=== PATIENT | male | born 1960 | race Native Hawaiian/Other Pacific Islander ===

== ENCOUNTER 2017-05-27 17:03 | Emergency (ER) | payer OTHER ==
[2017-05-27 17:03] VITALS: BMI 23.1
[2017-05-27 17:10] VITALS: TEMP 98.2; O2SAT 100
[2017-05-27] MEDS ORDERED: Sodium Chloride 0.9% 1,000 ML IV STA (17:23)
[2017-05-27] MEDS ORDERED: Morphine 4 mg/ml ISec IVP STA (17:23)
--- NOTE | 2017-05-27 17:29 | ED PDOC ---
Arrival/HPI - General Chief Complaint: Abdominal Pain Time Seen by Provider: 05/27/17 17:04 Historian: Patient - History of Present Illness Narrative History of Present Illness (Text): 05/27/17 17:16 This 57 yo male with pmh GERD, presents to this ED c/o right lower back pain, radiated to right abdomen x 3 hours. Patient admits a mild constipation. Patient also stated hesitation during urination x 2 months. Denies other complains. Time/Duration: Prior to Arrival, 1-3 hours Quality: Aching Context: Home Past Medical History - Provider Review Nursing Documentation Reviewed: Yes - Infectious Disease Hx of Infectious Diseases: None - Cardiac Hx Pacemaker: No - Neurological Hx Paralysis: No - Renal Other/Comment: left testical ca - Hematological/Oncological Hx Blood Transfusions: No Hx Blood Transfusion Reaction: No - Musculoskeletal/Rheumatological Hx Musculoskeletal Disorders: No - Gastrointestinal Hx Gastroesophageal Reflux: Yes - Psychiatric Hx Emotional Abuse: No Hx Physical Abuse: No Hx Substance Use: No - Past Surgical History Past Surgical History: No Previous - Surgical History Other/Comment: left testical removed - Anesthesia Hx Anesthesia Reactions: No Hx Malignant Hyperthermia: No - Suicidal Assessment Feels Threatened In Home Enviroment: No Family/Social History - Physician Review Nursing Documentation Reviewed: Yes Family/Social History: No Known Family HX, Unknown Family HX Smoking Status: Current Some Days Smoker Hx Alcohol Use: No Hx Substance Use: No Hx Substance Use Treatment: No Allergies/Home Meds Allergies/Adverse Reactions: Allergies Penicillins Allergy (Severe, Verified 07/31/16 08:33) ANAPHYLAXIS amoxicillin Allergy (Intermediate, Verified 07/31/16 08:33) ANAPHYLAXIS prednisone Allergy (Intermediate, Verified 07/31/16 08:33) STOMACH/GI DISTRESS Home Medications: Home Meds Medication Instructions Recorded Confirmed ALPRAZolam [Xanax] 0.25 mg PO PRN PRN 07/31/16 05/27/17 Ibuprofen [Advil] 200 mg PO PRN PRN 07/31/16 05/27/17 Review of Systems - Review of Systems Constitutional: Normal. absent: Fatigue, Weight Change, Fevers Eyes: Normal ENT: Normal Respiratory: Normal. absent: SOB Cardiovascular: Normal. absent: Chest Pain, Palpitations Gastrointestinal: Abdominal Pain, Constipation. absent: Nausea, Vomiting Genitourinary Male: Other (see HPI). absent: Dysuria, Hematuria Musculoskeletal: Back Pain. absent: Arthralgias, Neck Pain, Joint Swelling, Myalgias Skin: Normal. absent: Rash Neurological: Normal. absent: Headache, Dizziness, Focal Weakness, Gait Changes , Speech Changes, Facial Droop Endocrine: Normal Hemo/Lymphatic: Normal Psychiatric: Normal Physical Exam Vital Signs Temp Pulse Resp BP Pulse Ox 05/27/17 19:28 75 17 131/74 100 05/27/17 18:34 78 18 129/60 100 05/27/17 17:03 98.2 F 57 L 18 165/69 H 100 Temperature: Afebrile Blood Pressure: Hypertensive Pulse: Bradycardic Respiratory Rate: Normal Appearance: Positive for: Well-Appearing, Non-Toxic, Comfortable Pain Distress: None Mental Status: Positive for: Alert and Oriented X 3 - Systems Exam Head: Present: Atraumatic, Normocephalic Pupils: Present: PERRL Extroacular Muscles: Present: EOMI Conjunctiva: Present: Normal Mouth: Present: Moist Mucous Membranes Neck: Present: Normal Range of Motion Respiratory/Chest: Present: Clear to Auscultation, Good Air Exchange. No: Respiratory Distress, Accessory Muscle Use Cardiovascular: Present: Regular Rate and Rhythm, Normal S1, S2. No: Murmurs Abdomen: Present: Tenderness (mild right flank tenderness), Normal Bowel Sounds. No: Distention, Peritoneal Signs, Rebound, Guarding Back: Present: Normal Inspection. No: CVA Tenderness Upper Extremity: Present: Normal Inspection, Normal ROM, NORMAL PULSES, Neurovascularly Intact, Capillary Refill < 2s. No: Cyanosis, Edema Lower Extremity: Present: Normal Inspection, NORMAL PULSES, Normal ROM, Neurovascularly Intact, Capillary Refill < 2 s. No: Edema, CALF TENDERNESS Neurological: Present: GCS=15, CN II-XII Intact, Speech Normal, Motor Func Grossly Intact, Normal Sensory Function, Normal Cerebellar Funct, Gait Normal Skin: Present: Warm, Dry, Normal Color. No: Rashes Psychiatric: Present: Alert, Oriented x 3 Medical Decision Making ED Course and Treatment: 05/27/17 19:32 Re-evaluation. Patient feels better. Discussed results and plan with patient who expresses understanding. All questions answered and there is agreement with the plan to discharge home with instructions. Patient stable for discharge. Return if symptoms persist or worsen. Re-evaluation Time: 19:35 Reassessment Condition: Re-examined, Improved - Lab Interpretations Microbiology Results: Microbiology Results 05/27/17 17:38 Urine Urine Culture - Final No Growth (<1,000 CFU/ML) Lab Results: 05/27/17 17:05 05/27/17 17:05 Lab Results 05/27/17 17:38: Urine Color Yellow, Urine Appearance Clear, Urine pH 6.5, Ur Specific [place] 1.020, Urine Protein Trace H, Urine Glucose (UA) Negative, Urine Ketones Trace H, Urine Blood Large H, Urine Nitrate Negative, Urine Bilirubin Negative, Urine Urobilinogen 0.2, Ur Leukocyte Esterase Negative, Urine RBC Tntc, Urine WBC 20 - 25, Ur Epithelial Cells 6 - 8, Urine Bacteria Many 05/27/17 17:05: Sodium 139, Potassium 4.2, Chloride 106, Carbon Dioxide 22, Anion Gap 15, BUN 27 H, Creatinine 1.1, Est GFR ( Amer) > 60, Est GFR ( Non-Af Amer) > 60, Random Glucose 116 H, Calcium 9.5, Total Bilirubin 0.5, AST 20, ALT 28, Alkaline Phosphatase 80, Total Protein 7.0, Albumin 4.3, Globulin 2.7, Albumin/Globulin Ratio 1.6, Amylase 107, Lipase 271 05/27/17 17:05: WBC 11.7 H, RBC 5.54, Hgb 15.3, Hct 43.5, MCV 78.5 L, MCH 27.6, MCHC 35.2, RDW 15.0 H, Plt Count 159, MPV 11.4 H, Gran % 73.5 H, Lymph % (Auto) 17.2 L, [place] % (Auto) 8.4 H, Eos % (Auto) 0.6 L, Baso % (Auto) 0.3, Gran # 8.60 H, Lymph # 2.0, [place] # 1.0 H, Eos # 0.1, Baso # 0.03 I have reviewed the lab results: Yes Interpretation: Abnormal lab values - RAD Interpretation Narrative RAD Interpretations (Text): 05/27/17 19:01 Accession No. : [id number] Patient Name / ID : PANCHO MCNEIL / [id number] Exam Date : 05/27/2017 18:16:17 ( Approved ) Study Comment : Sex / Age : M / 57Y Creator : Jean Casanova MD Dictator : Jean Casanova MD Youth Minister : Donor Floor Technician : Jean Casanova MD Approver2 : Report Date : 05/27/2017 18:55:51 My Comment : PROCEDURE: CT scan of the abdomen and pelvis dated 01/29/2017. HISTORY: Right-sided flank pain COMPARISON: None. TECHNIQUE: Contiguous axial images of the abdomen and pelvis performed without oral or intravenous contrast material. Additional 2 dimensional sagittal and coronal reformats provided. Radiation dose: Total exam DLP = 266.32 mGy-cm. This CT exam was performed using one or more of the following dose reduction techniques: Automated exposure control, adjustment of the mA and/or kV according to patient size, and/or use of iterative reconstruction technique. FINDINGS: LOWER THORAX: Minimal passive atelectasis both posterior lower lung vasquez. No focal consolidation or effusion. No evidence of basilar pneumothorax. Tiny hiatal hernia. Heart size within range of normal. No pericardial effusion. LIVER: Liver is upper limits of normal measuring nearly 17.5 cm in CC dimension. No obvious hepatic the mass or collection. GALLBLADDER AND BILE DUCTS: Gallbladder appears to be contracted likely due to nonfasting state. No obvious intraluminal gallbladder calculi. Follow-up gallbladder ultrasound could be performed if clinically indicated. PANCREAS: Pancreas is not well delineated due to the lack of intravenous contrast material as well as passive a adjacent bowel. No gross pancreatic mass collection or calcification. Pancreatic duct does not appear significantly dilated so far as can be seen. SPLEEN: Spleen exhibits normal size and attenuation pattern without mass collection or calcification. ADRENALS: No adrenal lesions. KIDNEYS AND URETERS: Kidneys demonstrate relatively symmetric size. Small calcifications within renal hilar regions felt to be vascular in origin. Mildly prominent right-sided right-sided pelvis however no evidence of ureteral dilatation. BLADDER: Urinary bladder appears incompletely distended which may account for thick- walled appearance. Muscular hypertrophy may contribute. Cystitis or other intrinsic/invasive wall lesion would be less likely though not completely excluded . There is a small approximately 2.4 mm calcification within the right parasagittal posterior bladder lumen possibly related to recently passed calculus ; presumably on the right side REPRODUCTIVE: Prostate gland measures approximately 4.7 cm in transverse dimension. Prostatic calcifications are present. APPENDIX: Appendix is not seen with complete certainty however no radiographic evidence of acute appendicitis. BOWEL: Evaluation of the bowel is limited due to the lack of oral contrast material. Stomach is incompletely distended which may account for thick-walled appearance. Gastritis not excluded. Visualized loops of small bowel exhibit normal contour and caliber. No evidence of acute mechanical small bowel obstruction however there is fecalization of small bowel contents suggesting small bowel stasis. Clinical correlation recommended. Moderate amount of stool is present within the cecum and at ascending and to a lesser degree transverse colon consistent with mild fecal retention/constipation. PERITONEUM: Unremarkable. No fluid collection. No free air. LYMPH NODES: Unremarkable. No enlarged lymph nodes. VASCULATURE: No evidence of abdominal aortic aneurysm. Mild vascular calcifications of the abdominal aorta ileal disease iliac arteries. Minor calcifications also seen along the proximal renal arteries. BONES: Minor multilevel degenerative spondylosis of the lower thoracic and lumbar spine. OTHER FINDINGS: None. IMPRESSION: There is a small approximately 2.4 mm calculus within the right posterior parasagittal urinary bladder lumen that may represent recently passed calculus. Urinary bladder appears incompletely distended which may account for thick- walled appearance. Muscular hypertrophy may contribute. Cystitis or other intrinsic/invasive wall lesion would be less likely though not completely excluded . See above discussion for additional findings and details. Radiology Orders: 05/27/17 17:25 ABD & PELVIS W/O PO OR IV CONT [CT] Stat - Medication Orders Current Medication Orders: Discontinued Medications Famotidine (Pepcid) 20 mg IVP STAT STA Stop: 05/27/17 17:24 Last Admin: 05/27/17 17:40 Dose: 20 mg Sodium Chloride (Sodium Chloride 0.9%) 1,000 mls @ 1,000 mls/hr IV .Q1H STA Stop: 05/27/17 18:22 Last Admin: 05/27/17 17:41 Dose: 1,000 mls/hr Ketorolac Tromethamine (Toradol) 15 mg IVP STAT STA Stop: 05/27/17 17:41 Last Admin: 05/27/17 17:49 Dose: 15 mg Nitrofurantoin Macrocrystals (Macrobid) 100 mg PO STAT STA Stop: 05/27/17 19:17 Last Admin: 05/27/17 19:27 Dose: 100 mg Disposition/Present on Arrival - Present on Arrival Any Indicators Present on Arrival: No History of DVT/PE: No History of Uncontrolled Diabetes: No Urinary Catheter: No History of Decub. Ulcer: No History Surgical Site Infection Following: None - Disposition Have Diagnosis and Disposition been Completed?: Yes Diagnosis: Acute cystitis, Gastritis, Renal colic on right side Disposition: HOME/ ROUTINE Disposition Time: 19:36 Patient Plan: Discharge Condition: GOOD Discharge Instructions (ExitCare): Gastritis (ED), Kidney Stones (ED), Urinary Tract Infection in Men (ED) Additional Instructions: Call Dr. Дмитрий Garcia office for revaluation of bladder infection, and passing recent kidney stone. Also call packaging mechanic for revaluation of gastritis. Take medication as instructed. Return to emergency if symptoms worsen. Pyridium could cause urine color to be orange. Prescriptions: Famotidine [Pepcid] 40 mg PO DAILY #20 tablet Nitrofurantoin Macrocrystals [Macrobid] 100 mg PO BID #20 cap Phenazopyridine HCl [Pyridium] 200 mg PO TID #6 tablet Referrals: Ct Ramirez MD [Primary Care Provider] - Follow up with primary Дмитрий Garcia MD [Staff Provider] - Follow up with primary Bakari Wilde MD [Medical Doctor] - Follow up with primary Forms: WORK NOTE
[2017-05-27 17:53] LABS: ALB/GLOB RATIO 1.6 (1.1-1.8); ALBUMIN 4.3 g/dL (3.0-4.8); ALT/SGPT 28 U/L (7-56); AMYLASE 107 U/L (35-125); AST/SGOT 20 U/L (15-59); BLOOD UREA NITROGEN 27 mg/dL (7-21); CALCIUM 9.5 mg/dL (8.4-10.5); GFR AFRICAN-AMERICAN > 60; GFR NON-AFRICAN AMERICAN > 60; LIPASE 271 U/L (23-300)
[2017-05-27 18:02] LABS: PH,URINE 6.5 (4.7-8.0); URINE BILIRUBIN NEGATIVE (NEGATIVE); URINE BLOOD LARGE (NEGATIVE); URINE GLUCOSE (UA) NEGATIVE (NEGATIVE); URINE LEUKOCYTE ESTERASE NEGATIVE Leu/uL (NEGATIVE); URINE NITRATE NEGATIVE (NEGATIVE); URINE PROTEIN TRACE mg/dL (<30 mg/dL); URINE UROBILINOGEN 0.2 E.U./dL (<1 E.U./dL)
[2017-05-27 18:19] LABS: BASO # 0.03 K/mm3 (0.0-2.0); BASO % 0.3 % (0.0-3.0); EOS # 0.1 (0.0-0.7); EOS % 0.6 % (1.5-5.0); GRAN % 73.5 % (50.0-68.0); HEMOGLOBIN 15.3 gm/dL (14.0-18.0); LYMPH % 17.2 % (22.0-35.0); MEAN CELL VOLUME 78.5 fL (80.0-105.0); MEAN CORPUSCULAR HEMOGLOBIN 27.6 pg (25.0-35.0); MEAN CORPUSCULAR HGB CONC 35.2 g/dl (31.0-37.0); MEAN PLATELET VOLUME 11.4 fl (7.0-11.0); MONO % 8.4 % (1.0-6.0); PLATELET COUNT 159 10^3/uL (120.0-450.0); RBC 5.54 10^6/uL (3.5-6.1); WHITE BLOOD COUNT 11.7 10^3/ul (4.5-11.0)
[2017-05-27 18:20] LABS: URINE APPEARANCE CLEAR (CLEAR); URINE COLOR YELLOW (YELLOW)
--- NOTE | 2017-05-27 18:58 | CT ---
PROCEDURE: CT scan of the abdomen and pelvis dated 01/29/2017. HISTORY: Right-sided flank pain COMPARISON: None. TECHNIQUE: Contiguous axial images of the abdomen and pelvis performed without oral or intravenous contrast material. Additional 2 dimensional sagittal and coronal reformats provided. Radiation dose: Total exam DLP = 266.32 mGy-cm. This CT exam was performed using one or more of the following dose reduction techniques: Automated exposure control, adjustment of the mA and/or kV according to patient size, and/or use of iterative reconstruction technique. FINDINGS: LOWER THORAX: Minimal passive atelectasis both posterior lower lung vasquez. No focal consolidation or effusion. No evidence of basilar pneumothorax. Tiny hiatal hernia. Heart size within range of normal. No pericardial effusion. LIVER: Liver is upper limits of normal measuring nearly 17.5 cm in CC dimension. No obvious hepatic the mass or collection. GALLBLADDER AND BILE DUCTS: Gallbladder appears to be contracted likely due to nonfasting state. No obvious intraluminal gallbladder calculi. Follow-up gallbladder ultrasound could be performed if clinically indicated. PANCREAS: Pancreas is not well delineated due to the lack of intravenous contrast material as well as passive a adjacent bowel. No gross pancreatic mass collection or calcification. Pancreatic duct does not appear significantly dilated so far as can be seen. SPLEEN: Spleen exhibits normal size and attenuation pattern without mass collection or calcification. ADRENALS: No adrenal lesions. KIDNEYS AND URETERS: Kidneys demonstrate relatively symmetric size. Small calcifications within renal hilar regions felt to be vascular in origin. Mildly prominent right-sided right-sided pelvis however no evidence of ureteral dilatation. BLADDER: Urinary bladder appears incompletely distended which may account for thick-walled appearance. Muscular hypertrophy may contribute. Cystitis or other intrinsic/invasive wall lesion would be less likely though not completely excluded . There is a small approximately 2.4 mm calcification within the right parasagittal posterior bladder lumen possibly related to recently passed calculus ; presumably on the right side REPRODUCTIVE: Prostate gland measures approximately 4.7 cm in transverse dimension. Prostatic calcifications are present. APPENDIX: Appendix is not seen with complete certainty however no radiographic evidence of acute appendicitis. BOWEL: Evaluation of the bowel is limited due to the lack of oral contrast material. Stomach is incompletely distended which may account for thick-walled appearance. Gastritis not excluded. Visualized loops of small bowel exhibit normal contour and caliber. No evidence of acute mechanical small bowel obstruction however there is fecalization of small bowel contents suggesting small bowel stasis. Clinical correlation recommended. Moderate amount of stool is present within the cecum and at ascending and to a lesser degree transverse colon consistent with mild fecal retention/constipation. PERITONEUM: Unremarkable. No fluid collection. No free air. LYMPH NODES: Unremarkable. No enlarged lymph nodes. VASCULATURE: No evidence of abdominal aortic aneurysm. Mild vascular calcifications of the abdominal aorta ileal disease iliac arteries. Minor calcifications also seen along the proximal renal arteries. BONES: Minor multilevel degenerative spondylosis of the lower thoracic and lumbar spine. OTHER FINDINGS: None. IMPRESSION: There is a small approximately 2.4 mm calculus within the right posterior parasagittal urinary bladder lumen that may represent recently passed calculus. Urinary bladder appears incompletely distended which may account for thick-walled appearance. Muscular hypertrophy may contribute. Cystitis or other intrinsic/invasive wall lesion would be less likely though not completely excluded . See above discussion for additional findings and details.
[2017-05-27 19:06] LABS: URINE RBC TNTC /hpf (0-2); URINE WBC 20 - 25 /hpf (0-6)
[2017-05-27 19:07] LABS: URINE BACTERIA MANY (NEG)
[2017-05-27 19:29] VITALS: BP 131/74; PULSE 75; RESP 17
--- NOTE | 2017-05-28 09:26 | CARD ---
APPROVED REPORT EKG Measurement Heart [id number] <Conclusion> Sinus bradycardia Otherwise normal ECG
== END 2017-05-27 19:50 | disposition home or self-care (01) ==
LOC: ED 17:03
DX: N30.90 Cystitis, unspecified without hematuria (principal); K29.70 Gastritis, unspecified, without bleeding; N20.0 Calculus of kidney
CPT/HCPCS: 74176; 80053; 81001; 82150; 83690; 85025; 87086; 93005; 96361; 96374; 96375; 99285; J1885; J7040